=== PATIENT | male | born 2000 | race Hispanic/Latino ===

== ENCOUNTER 2023-05-24 23:40 | Observation (INO) | payer SELFPAY ==
[2023-05-24 23:45] VITALS: BP 170/88; PULSE 95; RESP 16; TEMP 36.8; O2SAT 97; BMI 40.8
--- NOTE | 2023-05-24 23:54 | ED_ITS ---
HPI - General Adult General Chief complaint: Abdominal Pain Stated complaint: abd pain Time Seen by Provider: 05/24/23 23:49 Source: patient Mode of arrival: Ambulatory History of Present Illness HPI narrative: 22-year-old male who is here for evaluation of right lower quadrant abdominal pain. Patient states that his symptoms started approximately 5-6 hours ago. Has been gradually worsening since then. Has pain in his right lower quadrant. The last time he ate was approximately 30 minutes prior to the start of the pain. He did have a bowel movement earlier today. No urinary symptoms. No nausea vomiting. No fevers. No prior abdominal surgeries. Has not tried anything for symptoms prior to arrival. No testicular pain. Related Data Allergies Allergy/AdvReac Type Severity Reaction Status Date / Time ibuprofen [From Motrin] Allergy Verified 05/24/23 23:52 Review of Systems Constitutional Constitutional: Reports system reviewed and no additional complaints, except as documented Gastrointestinal Gastrointestinal: Reports system reviewed and no additional complaints, except as documented Genitourinary Genitourinary: Reports system reviewed and no additional complaints, except as documented Integumentary/Breasts Skin/Breast: Reports system reviewed and no additional complaints, except as documented Patient History Social History Smoking Status: Never smoker Smoking Status: Never smoker Substance Use Type: does not use Exam Initial Vital Signs Initial Vital Signs: Vital Signs Temperature 98.2 F 05/24/23 23:45 Pulse Rate 95 H 05/24/23 23:45 Respiratory Rate 16 05/24/23 23:45 Blood Pressure 170/88 H 05/24/23 23:45 Pulse Oximetry 97 05/24/23 23:45 Oxygen Delivery Method Room Air 05/24/23 23:45 Const General: cooperative, comfortable and No ill appearing [facility] Head: normal to inspection Resp Effort & Inspection: normal respiratory effort Cardio Rate: regular rate GI Inspection: normal to inspection and non-distended Palpation: soft, No firm, guarding, No rigid and tender (Right lower quadrant) Back/Spine/Pelvis Back: No CVA tenderness Skin General: no rashes or lesions noted Neuro General: patient alert, patient awake, patient oriented x3 and moves all extremities Course Orders Ordered: ED Orders 05/24/23 23:53 CT abdomen pelvis w con Stat 05/24/23 23:57 Complete Blood Count AUTO DIFF Stat Comprehensive Metabolic Panel Stat Lipase Stat Sodium Chloride (Normal Saline 0.9%) 1,000 mls @ 125 mls/hr IV CONT SIMON Discontinued Medications Piperacillin Sod/Tazobactam (Sod 3.375 gm/ Sodium Chloride) 100 mls @ 25 mls/hr IV NOW ONE Stop: 05/25/23 00:47 Vital Signs Vital signs: Vital Signs - 8 hr 05/24/23 23:45 Temperature 98.2 F Pulse Rate 95 H Respiratory Rate 16 Blood Pressure 170/88 H Pulse Oximetry 97 Oxygen Delivery Method Room Air Medical Decision Making Lab Data Lab results reviewed: Yes I reviewed the patient's lab results. 05/24/23 23:57 05/24/23 23:57 Labs: Lab Results 05/24/23 Range/Units 23:57 WBC 16.6 H (4.5-11.0) X10^3/uL RBC 5.24 (4.5-5.9) X10^6/uL Hgb 16.6 (13.5-17.5) g/dL Hct 47.4 (41-53) % MCV 90.5 (80-100) fL MCH 31.7 (26-34) PG MCHC 35.1 (30-36) % RDW 12.5 (11.6-14.8) % Plt Count 209 (150-400) X10^3/uL Neut % (Auto) 75.0 (50-75) % Lymph % (Auto) 18.0 L (25-40) % [place] % (Auto) 4.7 (3-14) % Eos % (Auto) 0.6 L (2-4) % Baso % (Auto) 1.7 (0-2) % Neut # (Auto) 31076 H (3622-0221) /uL Lymph # (Auto) 3000 (4855-8601) /uL [place] # (Auto) 800 (0-900) /uL Eos # (Auto) 100 (0-450) /uL Baso # (Auto) 300 H (0-100) /uL Sodium 139 (137-145) mmol/L Potassium 4.1 (3.4-5.1) mmol/L Chloride 109 H (98-107) mmol/L Carbon Dioxide 23 (22-32) mmol/L BUN 14 (9-20) mg/dL Creatinine 0.82 (0.66-1.25) mg/dL Estimated GFR > 60 (>60) mL/min BUN/Creatinine Ratio 17.1 (6-22) Glucose 102 H (70-100) mg/dL Calcium 9.4 (8.4-10.2) mg/dL Total Bilirubin 0.8 (0.2-1.3) mg/dL AST 38 (17-59) IU/L ALT 75 H (<50) IU/L Alkaline Phosphatase 75 (38-126) U/L Total Protein 8.0 (6.3-8.2) g/dL Albumin 4.5 (3.5-5.0) g/dL Globulin 3.5 (1.7-4.1) g/dL Albumin/Globulin Ratio 1.3 (1.0-2.8) Lipase 49 (23-300) U/L Urine Dip Bedside Urine Glucose Negative Bedside Urine Bilirubin - Negative Bedside Urine Ketone - Negative Urine Specific [place] 1.030 Bedside Urine Occult Blood +/- Bedside Urine pH 6.0 Bedside Urine Protein +/- 15 Bedside Urine Urobilinogen - Negative Bedside Urine Nitrite - Negative Bedside Urine Leukocytes - Negative Esterase Point of care testing: Urine Dip Bedside Urine Glucose Negative Bedside Urine Bilirubin - Negative Bedside Urine Ketone - Negative Urine Specific [place] 1.030 Bedside Urine Occult Blood +/- Bedside Urine pH 6.0 Bedside Urine Protein +/- 15 Bedside Urine Urobilinogen - Negative Bedside Urine Nitrite - Negative Bedside Urine Leukocytes - Negative Esterase Imaging Data CT scan - abdomen/pelvis: Radiologist's Impression: PROCEDURE: CT ABDOMEN PELVIS W CON INDICATIONS: RLQ abd pain TECHNIQUE: After the administration of intravenous contrast, axial sections acquired from the lung bases to the pubic symphysis. Coronal and sagittal reformats were performed. For radiation dose reduction, the following was used: automated exposure control, adjustment of mA and/or kV according to patient size. COMPARISON: None. FINDINGS: Image quality: Diagnostic. Lower Chest: Cardiomegaly. ABDOMEN: Liver: No solid mass. Gallbladder: No radiopaque gallstones or wall thickening. Biliary ducts: No biliary dilation. Pancreas: No ductal dilation. Spleen: Size is within normal limits. Adrenal Glands: No adrenal nodules. Kidneys and Ureters: No hydronephrosis. No solid mass. No complex renal cystic lesion which requires follow up. Stomach and Bowel: The appendix is mildly distended, measuring 8-9 mm. There is wall thickening and periappendiceal fat stranding. No adjacent abscess. Peritoneum: No abnormal intraperitoneal fluid. No free air. Ventral Wall: No significant ventral hernia. Abdominal Nodes: No retroperitoneal or mesenteric adenopathy by size criteria. Vessels: Aorta and inferior vena cava are normal in size. PELVIS: Pelvic Organs: Unremarkable. Bladder: No bladder wall thickening, accounting for underdistention. Pelvic Nodes: No enlarged lymph nodes. Miscellaneous: No inguinal hernias are seen. Bones: No aggressive osseous abnormality. IMPRESSION: Suspected early acute appendicitis. No perforation or abscess. MDM Narrative Medical decision making narrative: Right lower quadrant abdominal pain. Afebrile. Does have leukocytosis. CT scan concerning for early acute appendicitis. This does fit his clinical presentation. Discussed the case with Dr. Evans on-call with General surgery who will admit for further evaluation and treatment. Antibiotics started here in the ER. Discussed the need for admission with the patient and family. Discussed the diagnosis. They expressed understanding and agreement as well. Discharge Plan Departure Patient Disposition: Admitted as Observation Clinical Impression: Acute appendicitis Admit Date/Time: 05/25/23 00:47 Admit Provider: Kathi Evans
[2023-05-25 00:08] LABS: Add Manual Diff / Slide Review NO; Basophils Absolute Auto 300 /uL (0-100); Basophils Percent Auto 1.7 % (0-2); Eosinophils Absolute Auto 100 /uL (0-450); Eosinophils Percent Auto 0.6 % (2-4); Hematocrit 47.4 % (41-53); Hemoglobin 16.6 g/dL (13.5-17.5); Lymphocytes Absolute Auto 3000 /uL (1100-4500); Mean Corpuscular HGB Conc 35.1 % (30-36); Mean Corpuscular Hemoglobin 31.7 PG (26-34); Mean Corpuscular Volume 90.5 fL (80-100); Monocytes Absolute Auto 800 /uL (0-900); Monocytes Percent Auto 4.7 % (3-14); Neutrophils Absolute Auto 12400 /uL (1500-7000); Platelet Count 209 X10^3/uL (150-400); Red Blood Cell Count 5.24 X10^6/uL (4.5-5.9); Red Cell Distribution Width 12.5 % (11.6-14.8); White Blood Cell Count 16.6 X10^3/uL (4.5-11.0)
[2023-05-25 00:15] LABS: Alanine Aminotransferase 75 IU/L (<50); Albumin 4.5 g/dL (3.5-5.0); Albumin Globulin Ratio 1.3 (1.0-2.8); Alkaline Phosphatase 75 U/L (38-126); Aspartate Aminotransferase 38 IU/L (17-59); BUN Creatinine Ratio 17.1 (6-22); Bilirubin Total 0.8 mg/dL (0.2-1.3); Blood Urea Nitrogen 14 mg/dL (9-20); Calcium 9.4 mg/dL (8.4-10.2); Carbon Dioxide 23 mmol/L (22-32); Chloride 109 mmol/L (98-107); Estimated Glomerular Filt Rate > 60 mL/min (>60); Globulin 3.5 g/dL (1.7-4.1); Glucose 102 mg/dL (70-100); HEMOLYSIS < 15 (0-50); Lipase 49 U/L (23-300); Potassium 4.1 mmol/L (3.4-5.1); Sodium 139 mmol/L (137-145)
[2023-05-25 01:06] VITALS: BP 133/78; PULSE 101; RESP 16; O2SAT 100
[2023-05-25] MEDS: SODIUM CHLORIDE 0.9% 1,000 ML 125 ML IV ×2 (01:07→09:57)
[2023-05-25] MEDS: PIPERACILLIN/TAZO 3.375 GM in SODIUM CHLORIDE 0.9% 100 ML IV ×3 (01:07→12:28)
[2023-05-25 01:21] VITALS: BMI 40.8
[2023-05-25 01:35] VITALS: BP 138/74; PULSE 103; RESP 18; TEMP 36.5; O2SAT 99
[2023-05-25] MEDS: CELECOXIB 200 MG CAPSULE PO ×2 (02:12→08:07)
[2023-05-25] MEDS: SCOPOLAMINE 1 PATCH TOP (02:12)
--- NOTE | 2023-05-25 04:45 | PC.NURSE ---
Admit/NOC Shift Note- patient arrived to room from ER at 0115. Patient alert and oriented and able to make needs known to staff. Patient oriented to bed and bed controls, room, lights, phone, menu, bathroom, and call rahman/ TV Remote. Patient independent. Patient agrees to call for assistance as needed. Patient NPO for surgery tomorrow. Patient aware of this order. Safety measures in place. call rahman and phone within reach.
[2023-05-25 05:03] LABS: Add Manual Diff / Slide Review NO; Basophils Absolute Auto 100 /uL (0-100); Basophils Percent Auto 0.6 % (0-2); Eosinophils Absolute Auto 0 /uL (0-450); Eosinophils Percent Auto 0.2 % (2-4); Hematocrit 44.7 % (41-53); Hemoglobin 15.4 g/dL (13.5-17.5); Lymphocytes Absolute Auto 3000 /uL (1100-4500); Lymphocytes Percent Auto 19.9 % (25-40); Mean Corpuscular HGB Conc 34.5 % (30-36); Mean Corpuscular Hemoglobin 31.4 PG (26-34); Monocytes Absolute Auto 900 /uL (0-900); Monocytes Percent Auto 6.3 % (3-14); Neutrophils Absolute Auto 10800 /uL (1500-7000); Platelet Count 209 X10^3/uL (150-400); Red Blood Cell Count 4.91 X10^6/uL (4.5-5.9); Red Cell Distribution Width 12.7 % (11.6-14.8); White Blood Cell Count 14.8 X10^3/uL (4.5-11.0)
[2023-05-25 08:00] VITALS: BP 114/66; PULSE 88; RESP 16; TEMP 36.6; O2SAT 99
--- NOTE | 2023-05-25 08:19 | CM.DANOTE ---
Initial DCP Assessment Visit Note Reviewed EMR and team rounds for pt's medical status and updates. Met with pt at bedside to introduce self and role. Pt was found to be awake, sitting up in bed, able to speak Nepali and participate in discussion re: d/c needs and preferences. He resides with his family in [place], is here for work. No anticipated home d/c needs identified at this time, father will transport him home once he's been medically cleared. Payor: Self Pay Attending: [facility] consult pending Pt is a 22 year-old M who presented to the ED last evening after experiencing several hours of R-sided lower quadrant abdominal pain. CT Abd/Pelvis showed early acute appendicitis. He was started on IV ABO's and fluids, and placed in OBS bed pending surgical consult. He's NPO in anticipation of probable surgery. Father was bedside all night, is available if needed. Pt also does not have any insurance, he was given a [facility] packet, and the admission counselors will contact him later this morning to see if they can help him with getting on the Exchange. DCP will continue to follow and assist with any needs/resources once he's medically cleared for discharge. Discharge Planning/Care Management CM Discharge Assessment Start: 05/25/23 08:16 Freq: Status: Active Protocol: Document 05/25/23 08:16 DPL (Rec: 05/25/23 08:18 DPL [id number]) Discharge Planning Assessment Assigned Senior Animal Trainer CATHY Ryan Advance Directives? No History Provided By Patient,Medical Record Has Patient been admitted in last 30 No days? Prior Living Arrangements House Household Members family Type of transporation used prior to Relies on Others admit Independent with ADL's Yes Is patient alert and oriented? Yes Caregiver for Another No Comment N/A Comment No anticipated home d/c needs identified at this time. Barriers to Discharge No Discharge Plan Home Transportation Arrangement Father Additional Comment OP Surgery f/u post-op. Whiteboard Updated in Patient Room with Yes name and ext. # of Senior Animal Trainer Review Status In Process Please Provide Date Initial DC 05/25/23 Assessment Was Performed
--- NOTE | 2023-05-25 08:28 | P.HP_ITS ---
History of Present Illness History of Present Illness Date Patient Seen: 05/25/23 Time Patient Seen: 08:28 Chief complaint: abd pain Narrative: This than 24 hrs of sharp RLQ pain. More appetite. No previous episodes. Feels better already on antibiotic. Reports he is follow at home for a cardiomyopathy diagnosed age 17. No current symptoms. Here working at the [employer] but from [place], [place]. REPLACED BY [facility] Social History household members: family Smoking Status: Never smoker alcohol intake: never Meds Home Medications and Allergies Allergies Allergy/AdvReac Type Severity Reaction Status Date / Time ibuprofen [From Motrin] Allergy Verified 05/24/23 23:52 Review of Systems Review of Systems ROS: Yes All systems reviewed with the patient and are negative except as otherwise documented Exam Vital Signs (past 8 hours): - 05/25/23 01:06 05/25/23 01:35 Temperature 97.7 F Pulse Rate 101 H 103 H Respiratory Rate 16 18 Blood Pressure 133/78 138/74 Pulse Oximetry 100 99 Oxygen Delivery Method Room Air Oxygen Flow Rate 0 Oxygen Delivery Method Room Air Oxygen Flow Rate 0 Const General: cooperative, healthy appearing and comfortable Nutritional Appearance: overweight Orientation: alert, awake and oriented x3 HENMT Head: normocephalic and atraumatic Face and sinus: normal facial exam Eyes Sclera: sclerae normal Neck Neck: trachea midline Resp Effort & Inspection: normal respiratory effort and able to speak in complete sentences Cardio Rate: tachycardic Rhythm: regular rhythm GI Palpation: soft and No tender Skin General: elasticity normal and turgor normal Neuro General: patient alert, patient awake and patient oriented x3 Cognition: normal cognition Psych Appearance: grossly normal Mental Status: mental status grossly normal Affect: normal affect Judgment: judgment good Objective Labs 05/25/23 04:52 05/24/23 23:57 Labs: Laboratory Results - last 24 hr 05/24/23 05/25/23 23:57 04:52 WBC 16.6 H 14.8 H RBC 5.24 4.91 Hgb 16.6 15.4 Hct 47.4 44.7 MCV 90.5 91.0 MCH 31.7 31.4 MCHC 35.1 34.5 RDW 12.5 12.7 Plt Count 209 209 Neut % (Auto) 75.0 73.0 Lymph % (Auto) 18.0 L 19.9 L [place] % (Auto) 4.7 6.3 Eos % (Auto) 0.6 L 0.2 L Baso % (Auto) 1.7 0.6 Neut # (Auto) 54741 H 45249 H Lymph # (Auto) 3000 3000 [place] # (Auto) 800 900 Eos # (Auto) 100 0 Baso # (Auto) 300 H 100 Sodium 139 Potassium 4.1 Chloride 109 H Carbon Dioxide 23 BUN 14 Creatinine 0.82 Estimated GFR > 60 BUN/Creatinine Ratio 17.1 Glucose 102 H Calcium 9.4 Total Bilirubin 0.8 AST 38 ALT 75 H Alkaline Phosphatase 75 Total Protein 8.0 Albumin 4.5 Globulin 3.5 Albumin/Globulin Ratio 1.3 Lipase 49 Assessment & Plan Assessment & Plan narrative: Acute appendicitis w/o fecal lith Plan: Medical management of antibiotics Time Spent With Patient Time with patient: less than 30 minutes Quality VTE Deep Vein Thrombosis/Pulmonary Embolism Present on Admission: No
[2023-05-25 16:00] VITALS: BP 115/62; PULSE 78; RESP 18; TEMP 36.3; O2SAT 99
[2023-05-25 17:43] LABS: Add Manual Diff / Slide Review NO; Basophils Absolute Auto 0 /uL (0-100); Basophils Percent Auto 0.6 % (0-2); Eosinophils Absolute Auto 100 /uL (0-450); Eosinophils Percent Auto 1.1 % (2-4); Hematocrit 44.7 % (41-53); Hemoglobin 15.4 g/dL (13.5-17.5); Lymphocytes Absolute Auto 2700 /uL (1100-4500); Mean Corpuscular HGB Conc 34.4 % (30-36); Mean Corpuscular Hemoglobin 31.4 PG (26-34); Mean Corpuscular Volume 91.5 fL (80-100); Monocytes Absolute Auto 500 /uL (0-900); Monocytes Percent Auto 6.3 % (3-14); Neutrophils Absolute Auto 4000 /uL (1500-7000); Platelet Count 179 X10^3/uL (150-400); Red Blood Cell Count 4.89 X10^6/uL (4.5-5.9); Red Cell Distribution Width 12.4 % (11.6-14.8); White Blood Cell Count 7.2 X10^3/uL (4.5-11.0)
--- NOTE | 2023-05-25 18:56 | PC.NURSE ---
Day shift: Assumed care at 1700. Called MD Evans at 1800 when labs resulted, let her know that patient is tolerating general diet and WBC came back normal. Discharge instructions gone over with patient and patient's father. PO Antibiotics gone over with patient. Patient stated understanding. All questions answered. PIV removed prior to discharge. All belongings with patient. PCT Best escorted patient to exit via wheelchair where patient's father plans to drive him home.
== END 2023-05-25 18:58 | disposition home or self-care (01) ==
LOC: ED 05-25 00:43 → AC 05-25 00:48
PROVIDERS: Admitting Provider Surgery; Emergency Provider Emergency Medicine; Referring Provider Emergency Medicine; Visit Provider Surgery
DX: K35.80 Unspecified acute appendicitis (principal)
CPT/HCPCS: 36415; 74177; 80053; 81003; 83690; 85025; 96365; 96366; 99221; 99283; 99284; G0378; J2543; Q9967